=== PATIENT | female | born 2000 | race Caucasian/White ===

== ENCOUNTER 2021-01-16 22:07 | Emergency (ER) | payer MEDICAID ==
[~2021-01-16] VITALS: Ht 149.9 cm; Wt 56.8 kg
[2021-01-16 22:18] VITALS: BP 110/64
[2021-01-16 22:33] LABS: COVID AG,FIA SOURCE NASOPHARYNGEAL
== END 2021-01-16 23:46 | disposition home or self-care (01) ==
LOC: EMS 22:08
DX: U07.1 COVID-19 (principal)
CPT/HCPCS: 99283